=== PATIENT | female | born 1935 ===

== ENCOUNTER 2022-01-04 12:36 | Inpatient (IN) ==
[2022-01-04] MEDS ORDERED: NS 0.9% 1000 ml BAG 500 ML IV ONE (12:45)
[2022-01-04 13:29] LABS: Hematocrit 36 % (35-47); Hemoglobin 11.6 g/dL (12.0-16.0); Mean Corpuscular HGB Conc 32 g/dL (31-36); Mean Corpuscular Hemoglobin 30 pg (27-31); Mean Corpuscular Volume 92 fL (80-97); Red Blood Count 3.92 10^6 /uL (3.70-4.87); Red Cell Distribution Width 16 % (10-15); White Blood Count 9.3 10^3/uL (3.5-10.8)
[2022-01-04 14:16] LABS: ALT 10 U/L (7-52); Albumin 3.9 g/dL (3.2-5.2); Albumin/Globulin Ratio 1.2 (1-3); Alkaline Phosphatase 61 U/L (35-149); Blood Urea Nitrogen 61 mg/dL (6-24); CO2 Carbon Dioxide 15 mmol/L (22-32); Chloride 108 mmol/L (101-111); Globulin 3.3 g/dL (2-4); Glucose 136 mg/dL (70-100); Sodium 133 mmol/L (135-145); Total Protein 7.2 g/dL (6.4-8.9); eGFR CKD-EPI 17.2 (>60)
[2022-01-04 14:24] LABS: ABS Lymphocytes 0.8 10^3/ul (1.0-4.8); ABS Monocytes 0.5 10^3/ul (0-0.8); Eosinophil % 0.1 %; Lymphocyte % 8.1 %; Mean Platelet Volume 10.2 fL (7.4-10.4); Platelet Count 222 10^3/uL (150-450)
[2022-01-04 14:30] LABS: Anion Gap 10 mmol/L (2-11)
[2022-01-04 16:22] LABS: Potassium Redraw 8.1 mmol/L (3.5-5.0)
[2022-01-04] MEDS ORDERED: Dextrose 50% Syringe 50 ml 25 GM/50 ML SYRINGE IV PUSH PRN ×2 (17:11→20:54)
[2022-01-04 17:41] LABS: Blood Urea Nitrogen 55 mg/dL (6-24); CO2 Carbon Dioxide 15 mmol/L (22-32); Calcium 9.5 mg/dL (8.6-10.3); Glucose 100 mg/dL (70-100); Sodium 134 mmol/L (135-145)
[2022-01-04 17:52] LABS: Anion Gap 7 mmol/L (2-11); Chloride 112 mmol/L (101-111)
[2022-01-04] MEDS ORDERED: NS 0.9% 1000 ml BAG 1,000 ML IV ONE (18:02)
[2022-01-04] MEDS ORDERED: Insulin Infusion 100unit/100mL 100 UNIT/100 ML BAG IV ONE (20:54)
[2022-01-04] MEDS ORDERED: CALCIUM GLUCONATE 1GM/50ML NS 1 GM/50 ML BAG IV ONE (20:57)
[2022-01-04] MEDS ORDERED: Insulin GLARGINE 100 un/ml 10 ml VIAL SUBCUT SCH (21:00)
[2022-01-04] MEDS ORDERED: SODIUM ZIRCONIUM CYCLOSILICATE 10 GM PACKET PO ONE (21:21)
[2022-01-04] MEDS ORDERED: D5NS 0.9% 1000 ml BAG 1,000 ML IV SCH (22:00)
[2022-01-04 23:11] LABS: Calcium 9.1 mg/dL (8.6-10.3)
[2022-01-04 23:17] LABS: eGFR CKD-EPI 23.3 (>60)
[2022-01-04 23:24] LABS: Potassium 6.7 mmol/L (3.5-5.0)
[2022-01-04] MEDS ORDERED: NS 0.9% 500 ml BAG 500 ML IV ONE (23:34)
[2022-01-05 01:07] LABS: Urine Appearance Clear; Urine Bilirubin Negative (Negative); Urine Blood Negative (Negative); Urine Color Yellow; Urine Glucose Negative (Negative); Urine Ketones Trace (Negative); Urine Nitrite Negative (Negative); Urine Protein Negative (Negative); Urine Specific Gravity 1.013 (1.002-1.030); Urine Urobilinogen Negative (Negative)
[2022-01-05 04:15] LABS: Calcium 9.7 mg/dL (8.6-10.3)
[2022-01-05 04:17] LABS: Potassium 6.1 mmol/L (3.5-5.0)
[2022-01-05 04:21] LABS: eGFR CKD-EPI 28.1 (>60)
[2022-01-05] MEDS: Heparin 5000 UNITS/ML 1 mL VIAL SUBCUT SCH ×3 (04:31→23:32)
[2022-01-05 06:34] LABS: ABS Eosinophils 0.1 10^3/ul (0-0.6); ABS Lymphocytes 1.5 10^3/ul (1.0-4.8); ABS Monocytes 0.8 10^3/ul (0-0.8); ABS Neutrophils 6.4 10^3/ul (1.5-7.7); Eosinophil % 0.9 %; Hematocrit 31 % (35-47); Hemoglobin 9.8 g/dL (12.0-16.0); Lymphocyte % 17.1 %; Mean Corpuscular HGB Conc 32 g/dL (31-36); Mean Corpuscular Hemoglobin 30 pg (27-31); Mean Corpuscular Volume 93 fL (80-97); Mean Platelet Volume 9.2 fL (7.4-10.4); Nucleated Red Blood Cells % 0.1; Platelet Count 191 10^3/uL (150-450); Red Blood Count 3.27 10^6 /uL (3.70-4.87); Red Cell Distribution Width 17 % (10-15); White Blood Count 8.8 10^3/uL (3.5-10.8)
[2022-01-05 07:10] LABS: Calcium 8.9 mg/dL (8.6-10.3); Sodium 137 mmol/L (135-145)
[2022-01-05 07:16] LABS: Blood Urea Nitrogen 42 mg/dL (6-24); Chloride 119 mmol/L (101-111); Glucose 101 mg/dL (70-100); eGFR CKD-EPI 29.9 (>60)
[2022-01-05 07:26] LABS: Anion Gap 6 mmol/L (2-11)
[2022-01-05 07:27] LABS: CO2 Carbon Dioxide 12 mmol/L (22-32)
[2022-01-05 08:10] LABS: Calcium 8.6 mg/dL (8.6-10.3); Potassium 4.7 mmol/L (3.5-5.0)
[2022-01-05 08:16] LABS: eGFR CKD-EPI 36.1 (>60)
[2022-01-05] MEDS: D5W 1/2 NS 1000 ml BAG 1,000 ML IV SCH ×2 (09:00→23:33)
[2022-01-05 10:57] LABS: Venous Bicarbonate HCO3 13.9 mmol/L (24-28)
[2022-01-05 11:49] LABS: Glucose Confirmatory 92 mg/dL (70-100)
[2022-01-05] MEDS: Cholecalciferol (VIT D3) 1,000 unit TAB PO SCH (12:47)
[2022-01-05] MEDS: Sodium Citrate/Citric Acid LIQ 15 ML UDC PO SCH ×3 (14:05→23:32)
[2022-01-06] MEDS: Heparin 5000 UNITS/ML 1 mL VIAL SUBCUT SCH ×2 (08:27→21:45)
[2022-01-06] MEDS: Cholecalciferol (VIT D3) 1,000 unit TAB PO SCH (08:27)
[2022-01-06] MEDS: Sodium Citrate/Citric Acid LIQ 15 ML UDC PO SCH ×3 (08:27→21:45)
[2022-01-06 13:18] LABS: Calcium 8.6 mg/dL (8.6-10.3); Potassium 4.7 mmol/L (3.5-5.0); eGFR CKD-EPI 61.9 (>60)
[2022-01-06] MEDS: D5W 1/2 NS 1000 ml BAG 1,000 ML IV SCH (15:13)
[2022-01-07] MEDS: D5W 1/2 NS 1000 ml BAG 1,000 ML IV SCH (02:04)
[2022-01-07 06:42] LABS: ABS Eosinophils 0.2 10^3/ul (0-0.6); ABS Lymphocytes 1.2 10^3/ul (1.0-4.8); ABS Monocytes 0.7 10^3/ul (0-0.8); ABS Neutrophils 4.1 10^3/ul (1.5-7.7); Eosinophil % 3.3 %; Hematocrit 30 % (35-47); Hemoglobin 10.2 g/dL (12.0-16.0); Lymphocyte % 19.9 %; Mean Corpuscular HGB Conc 34 g/dL (31-36); Mean Corpuscular Hemoglobin 31 pg (27-31); Mean Corpuscular Volume 91 fL (80-97); Mean Platelet Volume 9.1 fL (7.4-10.4); Platelet Count 172 10^3/uL (150-450); Red Blood Count 3.33 10^6 /uL (3.70-4.87); Red Cell Distribution Width 17 % (10-15); White Blood Count 6.3 10^3/uL (3.5-10.8)
[2022-01-07 07:56] LABS: Blood Urea Nitrogen 13 mg/dL (6-24); CO2 Carbon Dioxide 21 mmol/L (22-32); Calcium 8.2 mg/dL (8.6-10.3); Glucose 137 mg/dL (70-100); Sodium 137 mmol/L (135-145); eGFR CKD-EPI 58.7 (>60)
[2022-01-07 08:02] LABS: Anion Gap 4 mmol/L (2-11); Chloride 112 mmol/L (101-111)
[2022-01-07] MEDS: Cholecalciferol (VIT D3) 1,000 unit TAB PO SCH (09:11)
[2022-01-07] MEDS: Sodium Citrate/Citric Acid LIQ 15 ML UDC PO SCH ×3 (09:11→22:05)
[2022-01-07] MEDS: Heparin 5000 UNITS/ML 1 mL VIAL SUBCUT SCH ×2 (09:11→22:05)
[2022-01-08 06:49] LABS: Hematocrit 29 % (35-47); Hemoglobin 9.8 g/dL (12.0-16.0); Mean Corpuscular HGB Conc 34 g/dL (31-36); Mean Corpuscular Hemoglobin 30 pg (27-31); Mean Corpuscular Volume 90 fL (80-97); Mean Platelet Volume 8.9 fL (7.4-10.4); Platelet Count 162 10^3/uL (150-450); Red Blood Count 3.26 10^6 /uL (3.70-4.87); Red Cell Distribution Width 16 % (10-15); White Blood Count 6.7 10^3/uL (3.5-10.8)
[2022-01-08 07:16] LABS: Calcium 8.1 mg/dL (8.6-10.3); Potassium 4.3 mmol/L (3.5-5.0); eGFR CKD-EPI 50.8 (>60)
[2022-01-08] MEDS: Cholecalciferol (VIT D3) 1,000 unit TAB PO SCH (09:41)
[2022-01-08] MEDS: Sodium Citrate/Citric Acid LIQ 15 ML UDC PO SCH (09:41)
[2022-01-08] MEDS: Heparin 5000 UNITS/ML 1 mL VIAL SUBCUT SCH ×2 (09:41→20:55)
[2022-01-09] MEDS: Heparin 5000 UNITS/ML 1 mL VIAL SUBCUT SCH (10:09)
[2022-01-09] MEDS: Cholecalciferol (VIT D3) 1,000 unit TAB PO SCH (10:09)
[2022-01-09 15:53] VITALS: BP 126/51
== END 2022-01-09 16:00 | disposition home health service (06) | DRG 640 ==
LOC: ED 12:36 → EDHOLD 01-05 07:50 → SUATTDRO 01-05 07:50 → MEDTELE 01-05 11:10
PROVIDERS: ADMIT Internal Medicine Critical Care Medicine; ATTEND Internal Medicine